=== PATIENT | female | born 1935 | race Caucasian/White ===

== ENCOUNTER → 2016-10-11 | Outpatient (CLI) | payer MEDICARE ==
[~2016-10-11] MED LIST: ALBUTEROL MININEB NEB; AMLODIPINE-BEN1 EAC5 PO; ANTIVERT PO; ATORVASTATIN CA80 MG PO; AZOR 5-20 MG T1 EACH PO; CELEXA20 MG PO; CITALOPRAM HBR10 MG PO; COLACE PO; COUMADIN PO; DESYREL150 M1 PO; FENOFIBRATE54 MG PO; GLUCOPHAGE500 MG PO; GLUCOPHAGE850 MG PO; GLUCOTROL PO; IRON325 MG PO; JANUVIA50 MG PO; LANTUS100 UNITS/ SUBQ; LASIX20 MG PO; LEVAQUIN PO; LEVAQUIN750 M1 PO; LIPITOR80 MG PO; LOPRESSOR PO; LORTAB 5-325 M1 EACH PO; LOTREL 5-20 MG1 CAP PO; METFORMIN HCL500 M1 PO; METFORMIN PO; METOPROLOL TAR25 MG DOB; METOPROLOL TAR25 MG PO; NORCO1 TAB 10/3 PO; OMEPRAZOLE20 M2 PO; PRAVASTATIN SOD20 MG PO; PREDNISONE10 MG PO; PRILOSEC20 M1 PO; PRILOSEC20 MG PO; PROTONIX PO; SENOKOT S1 TA1 PO; SYMBICORT INH; TRICOR PO; ULTRAM PO; WARFARIN SODIUM2 M1 PO; ZOFRAN ODT4 MG PO
--- NOTE | ~2016-10-11 | US77 ---
[facility] A Service of [facility] RADIOLOGY TEXT RESULTS PATIENT: ARLEEN GRANT LOCATION: CNIV : 35 UNIT #: [id number] AGE: [address]: Mayi Mar SEX: F ORDER DR: [id number] [facility] [address] [place], [place] [address] [id number] O MR#: [id number] Acc #: [id number] NAME: ARLEEN GRANT. : 1935 SEX: F STUDY DATE/TIME: 10/11/2016 10:20 UNIT: CNIV ROOM: STUDY DESCRIPTION: US Kidney Bilateral Complete Attending Physician: Mayi Mar A.P.R.N. Referring Physician: Mayi Mar A.P.R.N. Ordering Physician: Mayi Mar A.P.R.N. Primary Care Physician: Isa Moon A.P.R.N. MEDICAL IMAGING REPORT This report is preliminary unless electronic signature is present EXAM Bilateral renal ultrasound 10/11/2016 HISTORY Physician's order states declining kidney function. Patient states flank pain for 1 year (side not designated). GFR 45. Additional stated history of acute renal insufficiency. COMPARISON CT abdomen and pelvis without contrast 10/16/2015. FINDINGS The right kidney measures 11.8 cm and the left kidney measures 11.3 cm in length. A cyst within the left upper renal pole measures 1.8 cm corresponding to previous CT finding. Another cyst in the lateral anterior polar region measures 1.9 cm. No suspicious solid renal mass is identified. No shadowing renal stone or hydronephrosis is evident. There is small quantity right upper quadrant abdominal ascites. Urinary bladder appears unremarkable. IMPRESSION 1. There are 2 simple left renal cysts. 2. No hydronephrosis. 3. Normal appearance of the urinary bladder. 4. Small quantity right upper quadrant ascites. Dictated by... Daphney Peterson M.D. THIS IS AN ELECTRONICALLY VERIFIED REPORT Daphney Peterson M.D. at 10/12/2016 8:46 AM LLH/mjs [facility] A Service of [facility] RADIOLOGY TEXT RESULTS PATIENT: ARLEEN GRANT LOCATION: CNIV : 35 UNIT #: [id number] AGE: [address]: Mayi Mar SEX: F ORDER DR: TD: 10/11/2016 14:14 JOB #: [id number] MEDICAL IMAGING REPORT Page 1 of 1 COPY
--- NOTE | ~2016-10-11 | US10 ---
[id number] [place] [address] [place], [place] [address] [id number] O MR#: [id number] Acc #: [id number] NAME: ARLEEN GRANT : 1935 SEX: F STUDY DATE/TIME: 10/11/2016 10:05 UNIT: CNIV ROOM: STUDY DESCRIPTION: US Aorta Complete Attending Physician: Mayi Mar A.P.R.N. Referring Physician: Mayi Mar A.P.R.N. Ordering Physician: Mayi Mar A.P.R.N. Primary Care Physician: Isa Moon A.P.R.N. MEDICAL IMAGING REPORT This report is preliminary unless electronic signature is present EXAM Abdominal aortic duplex. HISTORY Abdominal aortic aneurysm 331.57. FINDINGS Duplex imaging of the abdominal aorta was performed. The proximal aorta is patent with a maximum diameter of 2.5 cm. There is a small abdominal aortic aneurysm in the midportion measuring 3.7 x 3.6 cm in diameter. Distally, the abdominal aorta measures 2.8 x 3.1 cm. In the midportion, more measurements indicate the aneurysm could maybe as large as 4.04 cm. IMPRESSION Abdominal aortic aneurysm with a maximal diameter of 4 cm in the midportion. Dictated by... Yovany Boyle M.D. THIS IS AN ELECTRONICALLY VERIFIED REPORT Yovany Boyle M.D. at 10/14/2016 10:59 AM Bertha TD: 10/11/2016 15:09 JOB #: [id number] MEDICAL IMAGING REPORT Page 1 of 1 COPY
== END | disposition home or self-care (01) ==
LOC: CGUS 09:35 → CNIV 09:35 → CGUS 10:30
DX: I71.4 Abdominal aortic aneurysm, without rupture (principal); I75.029 Atheroembolism of unspecified lower extremity; N28.1 Cyst of kidney, acquired; R18.8 Other ascites
CPT/HCPCS: 76770

== ENCOUNTER → 2016-10-18 | Outpatient (CLI) | payer MEDICARE ==
--- NOTE | ~2016-10-18 | CT57 ---
[facility] A Service of [facility] RADIOLOGY TEXT RESULTS PATIENT: ARLEEN GRANT LOCATION: [facility] : 35 UNIT #: [id number] AGE: [address]: Isa Moon APRN SEX: F ORDER DR: [id number] [address] [address] [id number] O MR#: [id number] Acc #: [id number] NAME: ARLEEN GRANT. : 1935 SEX: F STUDY DATE/TIME: 10/18/2016 13:33 UNIT: [facility] ROOM: STUDY DESCRIPTION: CT Chest Wo Cont Attending Physician: Isa Moon A.P.R.N. Referring Physician: Isa Moon A.P.R.N. Ordering Physician: Isa Moon A.P.R.N. Primary Care Physician: Isa Moon A.P.R.N. MEDICAL IMAGING REPORT This report is preliminary unless electronic signature is present. EXAM CT of the chest without contrast INDICATIONS Pulmonary nodule. Patient reportedly states that there is a new pulmonary nodule found [address] of the chest was performed without contrast. Coronal and sagittal reformatted images were obtained. This CT exam was performed with one or more of the following radiation dose reduction techniques: automatic exposure control, adjustment of mA and/or kV according to patient size, and iterative reconstruction. COMPARISON 10/06/2015 and 05/18/2015 FINDINGS There is a large calcified granuloma in the base of the right lower lobe. There are scattered calcified granulomas elsewhere in the lungs. There are also some scattered tiny micronodules which are stable. There is no suspicious pulmonary nodule. There is some minimal emphysema. Calcified mediastinal lymph nodes. No suspicious lymphadenopathy. No pleural effusion. Coronary artery calcification. There is a stable tubular density in the right lower lobe which likely reflects some mucus filled dilated bronchioles. Limited imaging in the upper abdomen demonstrates scant perihepatic ascites. Diffuse high attenuation material in the gallbladder may reflect sludge. Partially imaged aortic aneurysm. This was recently evaluated on ultrasound of the aorta. Please refer the ultrasound report for complete details. IMPRESSION STS. [facility] A Service of [facility] RADIOLOGY TEXT RESULTS PATIENT: ARLEEN GRANT LOCATION: [facility] : 35 UNIT #: [id number] AGE: [address]: Isa Moon APRN SEX: F ORDER DR: 1. There are bilateral calcified granulomas including a dominant large calcified granuloma within the right lung base. 2. Scattered tiny micronodules elsewhere are stable. 3. A tubular area of low density in the right lower lobe likely reflects secretions or mucus filled dilated bronchiole. 4. No suspicious pulmonary nodule. Dictated by... Amauri Caceres M.D. THIS IS AN ELECTRONICALLY VERIFIED REPORT Amauri Caceres M.D. at 10/19/2016 10:06 AM ARS/danilo TD: 10/18/2016 20:21 JOB #: [id number] MEDICAL IMAGING REPORT Page 1 of 1
== END | disposition home or self-care (01) ==
LOC: SCT 13:44
DX: R91.8 Other nonspecific abnormal finding of lung field (principal); J84.10 Pulmonary fibrosis, unspecified; J98.4 Other disorders of lung
CPT/HCPCS: 71250

== ENCOUNTER 2016-11-26 10:52 | Inpatient (IN) | payer MEDICARE ==
[~2016-11-26] VITALS: Ht 152.4 cm; Wt 68.0 kg
--- NOTE | ~2016-11-26 | CO ---
Unit #: [id number] #: [id number] Patient: ARLEEN GRANT [id number] [facility]. [place], [place] [address] [id number] I MR#: [id number] NAME: ARLEEN GRANT. ROOM: 559 Age: Sex: F Admission Date: 11/26/2016 : 1935 Attending Physician: Brian Peace M.D. Primary Care Physician: Benson LiPJaysonRPatricia CONSULTATION REPORT DICTATED FOR Wilfrid Silva M.D. PRIMARY CARE PHYSICIAN Isa Moon A.P.R.N. REASON FOR CONSULTATION Ascites, possible cirrhosis, and GI bleed. HISTORY OF PRESENT ILLNESS The patient is a very pleasant 81-year-old female with past medical history significant for diabetes; COPD; hypertension; hyperlipidemia; CVA, on long-term anticoagulation. The patient lives with her daughter, but is quite independent. She was sent from her primary care provider's office for Coumadin toxicity and abdominal distention. The patient reports increasing abdominal swelling over the past couple of months. In addition, she has been noticing intermittently having melanotic stool and scant hematochezia. No nausea, vomiting, anorexia, or recent weight loss. In the emergency room, CT show liver with possible cirrhotic morphology and partially loculated ascites and concerning for peritoneal carcinomatosis. PAST MEDICAL HISTORY Diabetes, hypertension; hyperlipidemia; anxiety; COPD; CVA, on long-term anticoagulation. PAST SURGICAL HISTORY Cataract extraction, appendectomy, fallopian tube removal, bilateral carotid endarterectomy. SOCIAL HISTORY The patient lives with her daughter. She is a reformed smoker. Denies alcohol or any illicit drug use. FAMILY HISTORY Notable for breast cancer. None for colon, pancreatic cancer, or liver disease. ALLERGIES Penicillin and codeine. HOME MEDICATIONS Coumadin, fenofibrate, trazodone, atorvastatin, Protonix, Januvia, Unit #: [id number] #: [id number] Patient: ARLEEN GRANT amlodipine, Lasix, Celexa, Glucophage, Lantus, ferrous sulfate, Glucotrol, and Lopressor. REVIEW OF SYSTEMS Detailed review of system significant for abdominal distention, generalized weakness, melanotic stool, hematochezia, and mild abdominal pain. Negative for fever, chills, or rigors. No chest pain or shortness of breath. The patient does have a nonproductive cough. No anorexia or recent weight loss. The rest of organ systems reviewed and are negative. Dictated by.Jayson. Olivia Murillo APRN PN/modl TD: 11/27/2016 14:32 JOB #: [id number] CONTINUATION PHYSICAL EXAMINATION GENERAL: The patient is awake, alert, appears comfortable in no acute distress. VITAL SIGNS: Stable with temperature 98, blood pressure 118/53, heart rate 72, respirations 18. HEENT: The patient does have mild pallor. No scleral icterus. No lymphadenopathy. No peripheral edema. LUNGS: Decreased breath sounds bilaterally. CARDIOVASCULAR: Regular rate and rhythm with soft systolic murmur. ABDOMEN: Markedly distended. Mild diffuse tenderness with palpation. No guarding. Liver and spleen not palpable due to distention. Bowel sounds normal. DIAGNOSTIC STUDIES LABORATORY RESULTS: Basic metabolic panel notable for creatinine 2.0, BUN 47, potassium 5.4. Initially, albumin was 2.7. LFTs within normal limits. INR 1.9 down from 8.5 on admission. CBC notable for hemoglobin 10.7, down from 11.8 upon admission; WBC 8.6; platelet 432. Urinalysis within normal limits. IMAGING STUDIES: Abdominal CT showed a possible cirrhotic morphology of the liver, partially loculated ascites. There is extensive stranding seen within the mesentery concerning for possible peritoneal carcinomatosis with malignant ascites. Aneurysmal dilation of the infrarenal abdominal aorta measuring 4.2 x 3.6 cm. ASSESSMENT AND PLAN 1. The patient with new onset of ascites concerning for possible cirrhosis versus malignancy. We will schedule for large volume paracentesis and fluid analysis. 2. Anemia possible from chronic gastrointestinal blood loss. An upper gastrointestinal endoscopy is recommended and will be schedule for in a.m. to look for esophageal varices as indirect evidence of cirrhosis and for any potential source of upper gastrointestinal bleed. The patient will eventually need a colonoscopy as he has never had exam before. Exam can be scheduled at a later date when then patient can tolerate prep or as an outpatient. The plan of care discussed in detail with the patient and Unit #: [id number] #: [id number] Patient: RUDY,ARLEEN M daughter at the bedside. The patient has been discussed with Dr. Silva. Further recommendations to follow. Thank you very much for asking us to see this patient. We appreciate the consult. Dictated by.JOY Beach/stephanie TD: 11/27/2016 15:47 JOB #: [id number] CC: Benson LiPJaysonRJaysonNJayson CONSULTATION REPORT Page 1 of 1 X X CONSULTATION REPORT
--- NOTE | ~2016-11-26 | MR3 ---
[facility] A Service of [facility] RADIOLOGY TEXT RESULTS PATIENT: ARLEEN GRANT LOCATION: [facility] 559-01 : 35 UNIT #: [id number] AGE: [address]: Aura Marie MD SEX: F ORDER DR: [id number] [facility] [address] [place], [place] [address] [id number] I MR#: [id number] Acc #: [id number] NAME: ARLEEN GRANT. : 1935 SEX: F STUDY DATE/TIME: 12/01/2016 22:56 UNIT: [facility] ROOM: [facility] STUDY DESCRIPTION: MR Abdomen Wo Contrast Attending Physician: Aura Marie M.D. Ordering Physician: Mickey Padilla M.D. Primary Care Physician: Benson LiPJaysonRPatricia MRI CENTER REPORT This report is preliminary unless electronic signature is present. EXAM MRI abdomen without contrast 12/01/2016 HISTORY Cirrhosis. Ascites. Mid abdominal pain with diarrhea for [address] abdomen and pelvis without contrast 11/26/2016. PROCEDURE Multiplanar, multisequence images performed of the abdomen without contrast, as requested. FINDINGS Moderate abdominal ascites is present. Surface nodular contour of the liver compatible with the patient's stated history of cirrhosis. No focal liver lesions appreciated, although evaluation for liver lesion is limited due to lack of IV contrast. Some layering high-density material within the gallbladder may represent tiny stones or sludge. However, no abnormal gallbladder wall thickening is identified on this examination. No biliary dilation is evident. Pancreas appears mildly atrophic. T2 hyperintense lesions are demonstrated within each kidney which are nonspecific but are favored to represent cysts, 1 of the largest in the left upper renal pole measuring up to 1.6 cm. There is fusiform aneurysmal dilation of the abdominal aorta measuring nearly 3.5 cm on this examination. There is a dissection flap within it which is thought to be chronic, given the presence of calcification along the region of the flap on the 11/26/[address] [facility] A Service of [facility] & [facility] RADIOLOGY TEXT RESULTS PATIENT: ARLEEN GRANT LOCATION: [facility] 559-01 : 35 UNIT #: [id number] AGE: [address]: Aura Marie MD SEX: F ORDER DR: There is abnormal edema or reticulation within the omentum, likely related to patient's aforementioned ascites. Certainly, omental carcinomatosis could have a very similar appearance. No biliary dilation is identified. Pancreatic duct caliber appears within normal limits. IMPRESSION 1. Very mild surface nodular contour of the liver consistent with the patient's stated history of cirrhosis. No focal liver lesions identified but subtle liver lesions could certainly be missed due to the lack of IV contrast. 2. Moderate quantity abdominal ascites. 3. There is thickening of the omentum. This may represent changes related to aforementioned ascites. However, omental carcinomatosis can have a very similar appearance. Correlate with the patient's known history. Correlate with patient's paracentesis cytology. 4. Fusiform infrarenal abdominal aortic aneurysm with suspected chronic-appearing dissection flap within it. 5. Layering material within the gallbladder may represent stones or sludge. No abnormal gallbladder wall thickening and no abnormal biliary dilation. 6. Probable bilateral renal cysts. Dictated by... Daphney Peterson M.D. THIS IS AN ELECTRONICALLY VERIFIED REPORT Daphney Peterson M.D. at 12/02/2016 9:49 PM MICHAELA/gayatri TD: 12/02/2016 06:15 JOB #: [id number] MRI CENTER REPORT Page 1 of 1 COPY
--- NOTE | ~2016-11-26 | CO ---
Unit #: [id number] #: [id number] Patient: ARLEEN GRANT [id number] [place], [place] [address] [id number] I MR#: [id number] NAME: ARLEEN GRANT. ROOM: 559 Age: 81 Sex: F Admission Date: 11/26/2016 : 1935 Attending Physician: Aura Marie M.D. Primary Care Physician: Isa Moon A.P.R.N. Consultation Date: 11/27/2016 CONSULTATION REPORT PRIMARY CARE PHYSICIAN Isa Moon A.P.R.N. REASON FOR CONSULTATION New onset of ascites. HISTORY OF PRESENT ILLNESS The patient is a very pleasant 81-year-old white female who lives at home. The patient is physically quite active, does all the activities of daily living including cleaning and mopping in the house. She does not drive. Her son keeps a close eye on her. The patient has presented with Coumadin toxicity in fact she presents with 4 weeks' history of increasing abdominal distention and new onset of ascites with minimal pedal edema. DIAGNOSTIC STUDIES LABORATORY RESULTS: Shows an albumin of 2.1 and normal LFTs and the patient also has normochromic normocytic anemia with a hemoglobin of 10.0. White count and platelet counts are normal. IMAGING STUDIES: Her CT scan of the abdomen and pelvis is notable for possibly cirrhotic morphology of liver and possibility of the peritoneal carcinomatosis. MANAGEMENT PLAN This includes diagnostic paracentesis. The patient will have large volume paracentesis as well as will send the fluid for cytology, cell count, as well as albumin level. A diagnostic endoscopy is in order. The latter is normal and consider a colonic evaluation. In the meantime, the patient gets 2 g sodium high-protein diet. Detailed discussion was held with the patient's son regarding possibility of liver disease, such as cirrhosis versus malignancy, being the two most likely differential diagnosis and overall he seemed reassured. Thank you very much for asking me to see this pleasant woman. I appreciate the consult. This is an addendum to dictation already done by Olivia Murillo, nurse practitioner. Dictated by... Aviva Millan/stephanie Unit #: [id number] #: [id number] Patient: ARLEEN GRANT TD: 11/28/2016 14:35 JOB #: [id number] CONSULTATION REPORT Page 1 of 1 X Wilfrid Silva MD CONSULTATION REPORT
--- NOTE | ~2016-11-26 | OR ---
Unit #: [id number] #: [id number] Patient: ARLEEN GRANT [id number] [facility]. [place], [place] [address] [id number] I MR#: [id number] NAME: ARLEEN GRANT ROOM: 559 Date of Procedure: 11/28/2016 Admission Date: 11/26/2016 Surgeon: Wilfrid Silva M.D. : 1935 Attending Physician: Brian Peace M.D. Primary Care Physician: Isa Moon A.P.R.N. OPERATIVE REPORT PRIMARY CARE PHYSICIAN Isa Moon A.P.R.N. PREOPERATIVE DIAGNOSES New onset of ascites and anemia. The patient has been admitted with Coumadin toxicity. She has a 4 weeks history of progressively increasing abdominal distention. PROCEDURES PERFORMED Upper gastrointestinal endoscopy. POSTOPERATIVE DIAGNOSES Small hiatus hernia, otherwise normal examination up to third part of the duodenum. RECOMMENDATIONS The patient will undergo large volume paracentesis tomorrow, and the fluid be sent for cytology, albumin, cell count, and culture. She will require a colonoscopy a day later. In the meantime, her CA 19-9, CA-125, and CEA levels are pending. SEDATION USED MAC. DESCRIPTION OF PROCEDURE Following detailed explanation of the potential risks and complications of an upper endoscopy, namely perforation, bleeding, and complications related to sedation, the patient was brought to GI lab and laid in the left lateral decubitus position. Lubricated tip of the Olympus video upper endoscope was passed through bite-block into the proximal esophagus under direct vision. The entire esophageal mucosa was examined and appeared normal. Z-line was nicely demarcated, there being no esophagitis. The patient did have a small hiatus hernia. The scope was then advanced into the gastric cavity, and the latter was insufflated. Mucosa of the fundus, body, and antrum was examined, and appeared unremarkable. Pylorus was intubated with visualization of normal duodenal bulb and second and third part of the duodenum. Upon withdrawal and retroflexion, incisura, cardia, and greater curve examined, and no additional findings noted. The scope was then withdrawn in the distal esophagus. The entire esophageal mucosa was examined all the way up to pharynx. No additional findings noted. The patient tolerated the Unit #: [id number] #: [id number] Patient: ARLEEN GRANT procedure without any postprocedure complications. Dictated by... Aviva Millan/stephanie TD: 11/28/2016 14:33 JOB #: [id number] OPERATIVE REPORT Page 1 of 1 X Wilfrid Silva MD PROCEDURE OPERATIVE NOTE
--- NOTE | ~2016-11-26 | HP ---
Unit #: [id number] #: [id number] Patient: ARLEEN GRANT [id number] [facility]. [place], [place] [address] [id number] I MR#: [id number] NAME: ARLEEN GRANT. ROOM: 559 Age: 81 Sex: F Admission Date: 11/26/2016 : 1935 Attending Physician: Lata Peace M.D. Primary Care Physician: Isa Moon A.P.R.N. HISTORY AND PHYSICAL CHIEF COMPLAINT Abnormal labs. HISTORY OF PRESENT ILLNESS The patient is an 81-year-old female with a history of a carotid endarterectomy, on Coumadin, presented to the emergency room with the abnormal labs. The patient stated the patient was being followed with the nurse practitioner and has been gradually having the distended stomach with the weakness. The patient was scheduled to get the CT scan today, however, the patient was too weak to go for the blood checkup for the INR. The patient's INR was found to be 8.5. The patient also complains of passing the black stools and was attributed to the iron tablet that she is taking. The patient had a guaiac stool test done in the emergency room and that is trace positive for the bleeding. The patient had a CT of the abdomen that shows a loculated ascites and concerning for the peritoneal carcinomatosis and the patient is being admitted for the above reasons. Denies any fevers. Denies any chill. Denies any nausea and vomiting. PAST MEDICAL HISTORY History of hypertension, diabetes, hyperlipidemia and anxiety, subacute CVA. PAST SURGICAL HISTORY Cataract extraction, appendectomy, fallopian tube removal, history of a bilateral carotid endarterectomy. SOCIAL HISTORY Negative for tobacco, alcohol or any illicit drug abuse. FAMILY HISTORY Reviewed and none. ALLERGIES Penicillin and codeine. REVIEW OF SYMPTOMS Positive for the generalized weakness. Positive for the blood in the stool and negative for nausea and vomiting. Negative for dizziness. Negative for chest pain. Other systems reviewed and none. HOME MEDICATION Patient is on Glucophage, Lantus, iron, Glucotrol, Lopressor, Protonix, Januvia, amlodipine, benazepril, Lasix, Celexa, Coumadin, fenofibrate, Desyrel and Lipitor. Unit #: [id number] #: [id number] Patient: ARLEEN GRANT PHYSICAL EXAMINATION GENERAL APPEARANCE: On examination the patient is lying on a bed not in acute distress. VITAL SIGNS: Temperature 98.7, pulse 77, respiratory rate 16, blood pressure 153/71, sating 91% on 2 L. HEENT: Head atraumatic and normocephalic. Pupils equal, round and reacting to light and accommodation. Extraocular movements are intact. NECK: Supple. LUNGS: Decreased air entry at the bases. ABDOMEN: Soft, positive bowel sounds, distended and generalized tenderness. EXTREMITIES: No cyanosis. No clubbing. NEUROLOGIC: Alert, awake, oriented. No gross focal motor deficit. DIAGNOSTIC STUDIES LABORATORY DATA: WBCs 6.7, hemoglobin 11.8, hematocrit 32.4, platelets 413 and UA shows negative bacteria, INR is 8.5, sodium 137, potassium 5.4, chloride 103, bicarb 28, glucose 262, BUN 55, creatinine 2.4, AST 30, ALT 15, albumin 2.7, lipase 55. IMAGING: CT of the abdomen shows cirrhosis with loculated ascites and concerning for the peritoneal carcinomatosis. ASSESSMENT 1. Cirrhosis and ascites. 2. Coumadin toxicity. 3. Gastrointestinal bleed, likely upper gastrointestinal. 4. Acute kidney injury. PLAN Plan to admit the patient to the inpatient with the telemetry. Patient will receive the one pack of FFP and will have a GI evaluation for cirrhosis, ascites and the GI bleed and patient will have the IR abdominal paracentesis to rule out the malignancy and hold Coumadin. Patient has received the vitamin K5 mg p.o. x1 in the emergency room and repeat the INR in the morning and continue with the sliding scale and further recommendations will follow. Dictated by Aviva Grossman TD: 11/26/2016 20:09 JOB #: [id number] Unit #: [id number] #: [id number] Patient: ARLEEN GRANT HISTORY AND PHYSICAL Page 1 of 1 X LATA PEACE MD X HISTORY AND PHYSICAL
--- NOTE | ~2016-11-26 | CO ---
Unit #: [id number] #: [id number] Patient: ARLEEN GRANT [id number] [address] [place], [place] [address] [id number] I MR#: [id number] NAME: ARLEEN GRANT. ROOM: 559 Age: 81 Sex: F Admission Date: 11/26/2016 : 1935 Attending Physician: Aura Marie M.D. Primary Care Physician: Isa Moon A.P.R.N. Consultation Date: 12/01/2016 CONSULTATION REPORT REASON FOR EVALUATION Malignant ascites and elevated CA19-9, please evaluate. HISTORY OF PRESENT ILLNESS An 81-year-old lady with a history of prolonged INR while on Coumadin comes in due to abdominal distention and weakness, was found to have ascites which was tapped and it showed atypical cells highly suggestive of malignancy. CA19-9 was in the 21,816. Upper and lower endoscopy negative but looking back, CT scan of abdomen from 2015 showed a normal gallbladder and 2017 shows a lot of sludge in it, most probably showing signs of malignancy there. PAST MEDICAL HISTORY Her past history is mainly remarkable for: 1. Hypertension. 2. Hyperlipidemia. 3. CVA. 4. Anxiety disorder. FAMILY HISTORY Negative for cluster of cancers. SOCIAL HISTORY Nonsmoker. No alcohol usage. Retired. Has a daughter living with her and has other three children. ALLERGIES Penicillin and codeine. MEDICATIONS Chronic medications are multiple: 1. Celexa. 2. Glucophage. 3. Glucotrol. 4. Iron. 5. Lantus. 6. Lopressor. 7. Protonix. 8. Januvia. 9. Celexa. 10. Warfarin. 11. Lipitor. 12. Desyrel. 13. Fenofibrate. Unit #: [id number] #: [id number] Patient: ARLEEN GRANT Please see the chart for dosages. REVIEW OF SYSTEMS Today's review of systems: She states that she knew there was something drastically wrong. She started having abdominal discomfort, distention, and generalized weakness. She used to take care of herself and very active previously. Otherwise, six or eight systems are within normal limits. PHYSICAL EXAMINATION GENERAL: Very wide awake, alert, very pleasant, oriented, and has a good memory lady. Daughter is in the room with her. Pale. No palpable nodes. LUNGS: Clear. CARDIOVASCULAR: Distant S1, S2. ABDOMEN: Distended. Possible ascites. CENTRAL NERVOUS SYSTEM: Grossly intact. PELVIC: Not performed. BREAST: Not performed. DIAGNOSTIC STUDIES LABORATORY: CBC: Hemoglobin 10.7, hematocrit 33.4, white count 7700, platelets 399,000. Sodium 139, potassium 5.3, chloride 104, CO2 of 32, glucose 92, BUN 32, creatinine 1.2. CA19-9 at 21,816. CA125 of 494. 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 PLAN I walked in the room and we talked about this between the patient and the daughter. She is very reluctant about any chemotherapy but desires to know further delineation of where this cancer is coming from before deciding on supportive care. I have nothing against that. Will proceed with MRI of the abdomen and if that is not helpful, will even do a PET scan to delineate where this tumor is coming from and then discuss supportive care as the patient overall does not want any aggressive measures. Dictated by... Aviva Arvizu/scott TD: 12/01/2016 17:19 JOB #: [id number] Unit #: [id number] #: [id number] Patient: ARLENE GRANT CONSULTATION REPORT Page 1 of 1 X Mickey Padilla MD X CONSULTATION REPORT
--- NOTE | ~2016-11-26 | CT4 ---
[facility] A Service of [facility] & [facility] RADIOLOGY TEXT RESULTS PATIENT: ARLEEN GRANT LOCATION: [facility] 559-01 : 35 UNIT #: [id number] AGE: [address]: Aura Marie MD SEX: F ORDER DR: [id number] [facility] [address] [place], [place] [address] [id number] I MR#: [id number] Acc #: [id number] NAME: ARLEEN GRANT. : 1935 SEX: F STUDY DATE/TIME: 11/26/2016 13:21 UNIT: [facility] ROOM: [facility] STUDY DESCRIPTION: CT Abd and Pelv Wo Cont Attending Physician: Brian Peace M.D. Ordering Physician: Lakhwinder Chao D.O. Primary Care Physician: Isa Moon A.P.R.N. MEDICAL IMAGING REPORT This report is preliminary unless electronic signature is present EXAM CT abdomen and pelvis without contrast INDICATION Abdominal pain and distension for 2 weeks. The patient has a Coumadin level of over 8. TECHNIQUE Axial CT images were obtained from the dome of the diaphragm through symphysis pubis following administration of oral contrast only. FINDINGS Images through the lung bases do not demonstrate any acute abnormalities. There is a small hiatal hernia. I do think the patient's liver is somewhat cirrhotic in morphology. Certainly the caudate lobe appears enlarged. There is a somewhat nodular appearance to the contour. Correlation with liver function test is suggested, especially as the patient has ascites. The ascites does appear partially loculated, particularly tracking along the anterior aspect of the abdomen and left pericolic gutter. There is extensive stranding seen within the mesentery. This may simply reflect mesenteric edema, but the possibility of peritoneal carcinomatosis cannot be excluded. The patient's stomach appears unremarkable. There is no evidence of mechanical bowel obstruction, there is high-density material seen within the gallbladder which may reflect stones or sludge. The spleen actually measures within normal size limits. Adrenal glands and pancreas appear unremarkable. The right kidney is unremarkable given unenhanced technique. There is a cyst seen on the left kidney. This patient has stable aneurysmal dilatation of the infrarenal abdominal aorta measuring up to 4.2 x 3.6 cm which is unchanged when compared to last year's examination. There is calcified STS. [facility] A Service of [facility] & [facility] RADIOLOGY TEXT RESULTS PATIENT: ARLEEN GRANT LOCATION: [place] [address] : 35 UNIT #: [id number] AGE: [address]: Aura Marie MD SEX: F ORDER DR: intimal flap seen within the suprarenal aorta and certainly there is extensive atherosclerotic involvement of the aorta. Uterus appears unremarkable. There is some additional free fluid seen within the pelvis. Urinary bladder appears within normal limits. Review of bony windows does not demonstrate any aggressive osseous abnormalities. IMPRESSION 1. I do question if patient has a cirrhotic morphology to the liver. Correlation with liver function tests is recommended especially given the presence of ascites which is new when compared to the prior examination. Of note, there is no splenomegaly and no definite large esophageal varices are seen. 2. The ascites does have a somewhat loculated appearance, particularly within the anterior abdomen and tracking along the left pericolic gutter, there is extensive stranding seen within the mesentery. The possibility that this represents peritoneal carcinomatosis with malignant ascites cannot be excluded. No obvious masses are seen within the solid organs. 3. High-density material within the gallbladder may reflect stones or sludge. 4. Aneurysmal dilatation of the infrarenal abdominal aorta measuring 4.2 x 3.6 cm stable when compared to the last year's study. Dictated by... Aditi Mcgregor M.D. THIS IS AN ELECTRONICALLY VERIFIED REPORT Aditi Mcgregor M.D. at 11/29/2016 5:07 PM AFF/ea TD: 11/26/2016 19:23 JOB #: [id number] MEDICAL IMAGING REPORT Page 1 of 1 COPY
--- NOTE | ~2016-11-26 | XA170 ---
[facility] A Service of [facility] & [facility] RADIOLOGY TEXT RESULTS PATIENT: ALREEN GRANT LOCATION: [facility] 559-01 : 35 UNIT #: [id number] AGE: [address]: Aura Marie MD SEX: F ORDER DR: [id number] [facility] [address] [place], [place] [address] [id number] I MR#: [id number] Acc #: [id number] NAME: ARLEEN GRANT. : 1935 SEX: F STUDY DATE/TIME: 11/29/2016 10:00 UNIT: [facility] ROOM: [facility] STUDY DESCRIPTION: XA Paracentesis W Image Attending Physician: Aura Marie M.D. Ordering Physician: Wilfrid Silva M.D. Primary Care Physician: Benson LiPJaysonRPatricia MEDICAL IMAGING REPORT This report is preliminary unless electronic signature is present EXAM Ultrasound-guided paracentesis. INDICATIONS Ascites identified on a CT scan performed November 26, 2016. PROCEDURE The risks, benefits, and alternatives to the procedure were explained to the patient, and signed informed consent was obtained. The patient was placed supine on the stretcher. Preliminary ultrasound of the abdomen was performed. This demonstrated a moderate volume of ascites. The overlying skin was marked, the patient was prepped and draped in the usual sterile fashion. A time-out was performed, as per protocol. Skin and subcutaneous tissues were anesthetized with buffered lidocaine. A Yueh catheter was advanced into the fluid with aspiration of serous material. The catheter was hooked to suction tubing, and there was evacuation of a total of 3.8 L of serous material. The catheter was then removed, and manual pressure was applied until hemostasis was obtained. IMPRESSION Technically successful shunt-guided paracentesis with evacuation of 3.8 L of serous material. Ultrasound was used during the procedure, and permanent images were saved. Dictated by... Aditi Mcgregor M.D. THIS IS AN ELECTRONICALLY VERIFIED REPORT Aditi Mcgregor M.D. at 12/01/2016 4:53 PM AFF/js [facility]. [facility] A Service of [facility] & [facility] RADIOLOGY TEXT RESULTS PATIENT: ARLEEN GRANT LOCATION: [facility] 559-01 : 35 UNIT #: [id number] AGE: [address]: Aura Marie MD SEX: F ORDER DR: TD: 11/30/2016 13:09 JOB #: [id number] MEDICAL IMAGING REPORT Page 1 of 1 COPY
--- NOTE | ~2016-11-26 | DS ---
Unit #: [id number] #: [id number] Patient: ARLEEN GRANT [id number] [address] [address] [id number] I MR#: [id number] NAME: ARLEEN GRANT. ROOM: 559 Age: 81 Sex: F Admission Date: 11/26/2016 : 1935 Discharge Date: Attending Physician: Aura Marie M.D. Primary Care Physician: Isa Moon A.P.R.N. DISCHARGE SUMMARY DISCHARGE DIAGNOSES 1. 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 2. Gastrointestinal bleed, status post esophagogastroduodenoscopy, which shows small hiatal hernia and colonoscopy shows a single sessile polyp. The rest of the exam is normal. 3. Likely cirrhosis, changes found in MRI of the abdomen. 4. Hypertension. 5. Diabetes mellitus type 2 uncontrolled. 6. Hyperlipidemia. 7. Anxiety. 8. History of subacute cerebrovascular accident. 9. Coumadin toxicity. 10. Acute kidney injury. 11. Severe protein malnutrition. 12. Mild hypocalcemia. CONSULTANTS Dr. Padilla and Dr. Silva. PROCEDURES Patient had EGD and colonoscopy, which showed small hiatal hernia and sessile polyps single at the proximal descending colon. DIAGNOSTIC STUDIES LABORATORY DATA: Glucose 118, sodium 138, potassium 5.1, creatinine 1.4, AST 28, ALT 11, alk phos 41, total bilirubin 0.1, albumin 2.0. WBC 7.4, hemoglobin 10.5, placements 395. Cytology from the ascites shows atypical cells suspicious for malignancy. CA 125 level is 494. CA 19-9 level is 21,816. MRI: MRI of the abdomen shows mild surface nodular contour of the liver consistent with patient history of cirrhosis. No focal liver lesions. Moderate quantity abdominal ascites present. Thickening of omentum present. This reflection is related to aforementioned ascites, cannot rule out omental carcinomatosis. IMAGING STUDIES: CAT scan of the abdomen and pelvis shows cirrhotic morphology, ascites, high density material near the gallbladder representing stones or sludge. ALLERGIES Penicillin and codeine. Unit #: [id number] #: [id number] Patient: ARLEEN GRANT DISCHARGE MEDICATIONS 1. Coumadin 2 mg p.o. daily to resume if okay with Dr. Padilla. Patient will have outpatient PET scan, not sure if she will have biopsy for her malignancy. 2. Celexa 20 mg p.o. daily. 3. Trazodone 150 mg at bedtime. 4. Januvia 50 daily. 5. Atorvastatin 80 daily. 6. Lopressor 12.5 p.o. b.i.d. 7. Fenofibrate 54 mg p.o. daily. 8. Lantus 14 units subcu b.i.d. 9. Iron 325 p.o. daily. 10. Protonix 40 daily. 11. Lortab 5 mg q.4 p.r.n. moderate pain. HOSPITALIZATION COURSE 81-year-old admitted because of abdominal pain and abnormal labs. 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 MRI is abnormal with thickening omentum and nodular changes of liver. Ascites tap with paracentesis done, which shows abnormal cells, also with elevated CA 125 and CA 19-9 level, most likely carcinoma. Patient wants an outpatient PET scan but she is not sure if she surgery, chemo, or radiation. The patient is seen by Dr. Silva and Dr. Padilla. They will follow the patient as an outpatient. It talked in detail with her daughter, Sussy, and she agrees to be discharged home and she will take the patient to the appointments and for PET scan as an outpatient. Acute kidney injury, most likely prerenal. Her lisinopril and Lasix has been discontinued. IV fluids given. Creatinine is stable. History of subacute CVA on Coumadin. Hold that for now until okay by Dr. Padilla because she might need a biopsy to diagnose her carcinoma, if patient wants to pursue that route. Diabetes mellitus type 2 with low blood sugars. Continue current medications. Hold her metformin, but continue her insulin because she is receiving that during the hospitalization course. Currently tolerating diet okay. Hypertension, stable. Discussed with the daughter, Sussy. GI bleed. Patient had EGD and colonoscopy, which she did not show obvious bleeding. Currently hemoglobin is stable. Cirrhotic morphology of liver with ascites. Patient will follow with Dr. Silva. Patient had paracentesis. Discharged home with home health. Follow with Dr. Silva in two weeks time. Follow with Dr. Padilla in one week time for outpatient PET scan and swallow post carcinoma. Discharge time taken is 32 minutes. Unit #: [id number] #: [id number] Patient: ARLEEN GRANT Dictated by... Aviva Garcia/clarence TD: 12/02/2016 12:04 JOB #: [id number] DISCHARGE SUMMARY Page 1 of 1 X Aura Marie MD X DISCHARGE SUMMARY
--- NOTE | ~2016-11-26 | OR ---
Unit #: [id number] #: [id number] Patient: ARLEEN GRANT [id number] [place], [place] [address] [id number] I MR#: [id number] NAME: ARLEEN GRANT. ROOM: 559 Date of Procedure: 12/01/2016 Admission Date: 11/26/2016 Surgeon: Wilfrid Silva M.D. : 1935 Attending Physician: Aura Marie M.D. Primary Care Physician: Isa Moon A.P.R.N. OPERATIVE REPORT PRIMARY CARE PHYSICIAN Isa Moon A.P.R.N. PREOPERATIVE DIAGNOSES The patient has presented with a history of ascites with low albumin gradient consistent with malignant ascites. In addition, her CA 19-9 is more than 21,000 consistent with malignant ascites. She also has an iron deficiency anemia. The purpose of colonoscopy is to look for any malignancy. PROCEDURES PERFORMED Colonoscopy and polypectomy. POSTOPERATIVE DIAGNOSES 1. Single sessile polyp in the mid proximal descending colon. This was removed using snare polypectomy. The polyp was about 5 to 6 mm in size and was lost in suction. 2. Rest of the examination up to cecum and terminal ileum was normal. The quality of the prep was excellent. No angiodysplasias were seen and the patient did not have any cancer. RECOMMENDATIONS The patient has a malignant ascites of unknown primary. It is rather difficult to decide as to how aggressive one needs to be at her age. I have left a telephonic message with her daughter as well as I tried to reach her son and have so far unable to do that. In the meantime, we will obtain Oncology consultation. SEDATION USED MAC. DESCRIPTION OF PROCEDURE Following detailed explanation of potential risks and complications of a colonoscopy, namely perforation, bleeding, and complications related to sedation, the patient was brought to GI lab and laid in the left lateral decubitus position. A digital rectal examination was performed, which was normal. Lubricated tip of the Olympus video colonoscope was inserted through the anus and advanced under direct vision. The scope was advanced past rectosigmoid into descending colon. No diverticula were noted in this area. The scope tip was then navigated all the way up to cecum with visualization of the ileocecal valve and the appendiceal orifice. Preparation was excellent with good visualization and photodocumentation Unit #: [id number] #: [id number] Patient: ARLEEN GRANT was obtained. Last several inches of the terminal ileum were also visualized after intubation of the ileocecal valve and appeared normal. Successive segments of the colonic mucosa were examined upon withdrawal. A single sessile polyp was noted in the proximal descending colon. This was about 6 mm in size. It was removed using snare polypectomy. The polyp could not be retrieved and was lost in suction. No additional polyps were noted. The patient did not have any diverticulosis nor any hemorrhoids. The scope was then withdrawn and the patient returned to the recovery area. She tolerated the procedure without any postprocedure complications. Dictated by... Aviva Millan/stephanie TD: 12/01/2016 16:24 JOB #: [id number] OPERATIVE REPORT Page 1 of 1 X Wilfrid Silva MD X PROCEDURE OPERATIVE NOTE
[~2016-11-26 10:52] MED LIST changes: -ATORVASTATIN CA80 MG PO; -COUMADIN PO; -GLUCOTROL PO; -IRON325 MG PO; -JANUVIA50 MG PO; -LANTUS100 UNITS/ SUBQ; -LOPRESSOR PO; -LORTAB 5-325 M1 EACH PO; -METFORMIN PO; -PROTONIX PO
[2016-11-26 11:33] LABS: URINE SOURCE CLEAN CATCH
[2016-11-26 11:38] LABS: BASOPHIL% 0.4 % (0-2.5); EOSINOPHIL# 0.1 X10e3 (0-0.7); EOSINOPHIL% 0.8 % (0.0-7.0); HEMATOCRIT 36.4 % (35.0-45.0); HEMOGLOBIN 11.8 gm/dL (12.0-16.0); LYMPHOCYTE# 0.5 X10e3 (1.0-3.5); MEAN CORPUSCULAR HEMOGLOBIN 28.4 PG (28-34); MEAN CORPUSCULAR HGB CONC 32.3 g/dL (30-36); MEAN PLATELET VOLUME 9.4 FL (6.5-11.5); MONOCYTE# 0.4 X10e3 (0-1.0); MONOCYTE% 6.6 % (3.0-12.0); NEUTROPHIL# 5.8 X10e3 (1.5-7.1); NEUTROPHIL% 85.2 % (40-75); PLATELET COUNT 413 X10e3 (140-420); RED BLOOD COUNT 4.14 X10e (3.90-5.30); RED CELL DISTRIBUTION WIDTH 14.4 % (11.0-15.5); WHITE BLOOD COUNT 6.7 X10e3 (4.0-10.5)
[2016-11-26 11:39] LABS: DIFF IND NO
[2016-11-26 11:40] LABS: URINE APPEARANCE CLEAR; URINE BILIRUBIN NEG (NEG); URINE BLOOD NEG (NEG); URINE COLOR YELLOW; URINE GLUCOSE NEG (NEG); URINE KETONE TRACE (NEG); URINE LEUKOCYTE ESTERASE NEG (NEG); URINE NITRATE NEG (NEG); URINE PROTEIN NEG (NEG)
[2016-11-26 11:46] LABS: CULTURE INDICATED? NO
[2016-11-26 12:00] LABS: PARTIAL THROMBOPLASTIN TIME 63.2 SECONDS (23.5-31.3); PROTHROMBIN TIME (PATIENT) 92.4 SECONDS (10.0-11.7)
[2016-11-26 12:08] LABS: INR 8.5
[2016-11-26] MEDS ORDERED: LANTUS100 UNITS/ SUBQ (12:16)
[2016-11-26] MEDS ORDERED: JANUVIA50 MG PO (12:16)
[2016-11-26] MEDS ORDERED: LOPRESSOR PO (12:16)
[2016-11-26] MEDS ORDERED: METFORMIN PO (12:16)
[2016-11-26] MEDS ORDERED: GLUCOTROL PO (12:16)
[2016-11-26] MEDS ORDERED: PROTONIX PO (12:16)
[2016-11-26] MEDS ORDERED: IRON325 MG PO (12:16)
[2016-11-26] MEDS ORDERED: AMLODIPINE-BEN1 EAC5 PO (12:17)
[2016-11-26] MEDS ORDERED: DESYREL150 M1 PO (12:17)
[2016-11-26] MEDS ORDERED: FENOFIBRATE54 MG PO (12:17)
[2016-11-26] MEDS ORDERED: LASIX20 MG PO (12:17)
[2016-11-26] MEDS ORDERED: COUMADIN PO (12:17)
[2016-11-26] MEDS ORDERED: CELEXA20 MG PO (12:17)
[2016-11-26 12:18] LABS: ALBUMIN SERUM 2.7 g/dL (3.5-5.0); BILIRUBIN, DIRECT 0.2 mg/dL (0.0-0.2); BILIRUBIN,INDIRECT 0.4 mg/dL (0.0-0.9); BILIRUBIN,TOTAL 0.6 mg/dL (0.2-2.0); CALCIUM SERUM 8.6 mg/dL (8.4-10.2); CREATININE SERUM 2.5 mg/dL (0.6-1.4); GLOM FILT RATE Estimated 17.4 mL/min (>60); POTASSIUM 5.1 mmol/L (3.5-5.1); PROTEIN TOTAL SERUM 7.1 g/dL (6.0-8.3)
[2016-11-26] MEDS ORDERED: ATORVASTATIN CA80 MG PO (12:18)
[2016-11-27 07:11] LABS: BASOPHIL# 0.1 X10e3 (0-0.3); EOSINOPHIL% 0.6 % (0.0-7.0); HEMATOCRIT 33.2 % (35.0-45.0); HEMOGLOBIN 10.7 gm/dL (12.0-16.0); LYMPHOCYTE# 1.3 X10e3 (1.0-3.5); MEAN CELL VOLUME 87.2 FL (83-96); MEAN CORPUSCULAR HEMOGLOBIN 28.1 PG (28-34); MEAN CORPUSCULAR HGB CONC 32.2 g/dL (30-36); MONOCYTE# 0.7 X10e3 (0-1.0); MONOCYTE% 7.5 % (3.0-12.0); NEUTROPHIL# 6.6 X10e3 (1.5-7.1); NEUTROPHIL% 75.9 % (40-75); PLATELET COUNT 432 X10e3 (140-420); RED BLOOD COUNT 3.81 X10e (3.90-5.30); RED CELL DISTRIBUTION WIDTH 14.4 % (11.0-15.5); WHITE BLOOD COUNT 8.6 X10e3 (4.0-10.5)
[2016-11-27 07:19] LABS: DIFF IND NO
[2016-11-27 07:24] LABS: INR 1.9
[2016-11-27 07:39] LABS: PROTHROMBIN TIME (PATIENT) 20.3 SECONDS (10.0-11.7)
[2016-11-27 07:55] LABS: BUN/CREATININE RATIO 23.5; CALCIUM SERUM 8.6 mg/dL (8.4-10.2); GLOM FILT RATE Estimated 22.8 mL/min (>60); POTASSIUM 5.4 mmol/L (3.5-5.1)
[2016-11-28 05:31] LABS: HEMATOCRIT 32.9 % (35.0-45.0); HEMOGLOBIN 10.8 gm/dL (12.0-16.0); MEAN CELL VOLUME 86.1 FL (83-96); MEAN CORPUSCULAR HEMOGLOBIN 28.3 PG (28-34); MEAN CORPUSCULAR HGB CONC 32.8 g/dL (30-36); MEAN PLATELET VOLUME 9.3 FL (6.5-11.5); RED BLOOD COUNT 3.82 X10e (3.90-5.30); RED CELL DISTRIBUTION WIDTH 14.2 % (11.0-15.5); WHITE BLOOD COUNT 7.5 X10e3 (4.0-10.5)
[2016-11-28 05:34] LABS: INR 1.4; PROTHROMBIN TIME (PATIENT) 15.4 SECONDS (10.0-11.7)
[2016-11-28 06:33] LABS: ALBUMIN SERUM 2.1 g/dL (3.5-5.0); BILIRUBIN,TOTAL 0.7 mg/dL (0.2-2.0); BUN/CREATININE RATIO 25.29; CALCIUM SERUM 8.4 mg/dL (8.4-10.2); CREATININE SERUM 1.7 mg/dL (0.6-1.4); GLOM FILT RATE Estimated 27.8 mL/min (>60); PROTEIN TOTAL SERUM 5.6 g/dL (6.0-8.3)
[2016-11-28 06:34] LABS: POTASSIUM 5.7 mmol/L (3.5-5.1)
[2016-11-29 05:15] LABS: HEMATOCRIT 32.6 % (35.0-45.0); HEMOGLOBIN 10.7 gm/dL (12.0-16.0); MEAN CORPUSCULAR HEMOGLOBIN 28.2 PG (28-34); MEAN CORPUSCULAR HGB CONC 32.8 g/dL (30-36); MEAN PLATELET VOLUME 9.1 FL (6.5-11.5); RED BLOOD COUNT 3.79 X10e (3.90-5.30); RED CELL DISTRIBUTION WIDTH 14.4 % (11.0-15.5); WHITE BLOOD COUNT 7.6 X10e3 (4.0-10.5)
[2016-11-29 05:28] LABS: INR 1.4; PROTHROMBIN TIME (PATIENT) 14.7 SECONDS (10.0-11.7)
[2016-11-29 06:21] LABS: ALBUMIN SERUM 2.2 g/dL (3.5-5.0); BILIRUBIN,TOTAL 0.7 mg/dL (0.2-2.0); BUN/CREATININE RATIO 26.25; CALCIUM SERUM 8.4 mg/dL (8.4-10.2); CREATININE SERUM 1.6 mg/dL (0.6-1.4); GLOM FILT RATE Estimated 29.9 mL/min (>60); POTASSIUM 5.2 mmol/L (3.5-5.1); PROTEIN TOTAL SERUM 6.2 g/dL (6.0-8.3)
[2016-11-29 10:53] LABS: BODY FLUID APPEARANCE CLEAR; BODY FLUID SOURCE ASCITES
[2016-11-29 10:54] LABS: BF TOTAL NUCLEATED CELL COUNT 2014 CMM (0-100); BODY FLUID RBC <10000 CMM
[2016-11-30 05:27] LABS: HEMATOCRIT 32.4 % (35.0-45.0); HEMOGLOBIN 10.4 gm/dL (12.0-16.0); MEAN CELL VOLUME 87.1 FL (83-96); MEAN CORPUSCULAR HEMOGLOBIN 27.9 PG (28-34); MEAN PLATELET VOLUME 9.2 FL (6.5-11.5); RED BLOOD COUNT 3.72 X10e (3.90-5.30); RED CELL DISTRIBUTION WIDTH 14.3 % (11.0-15.5); WHITE BLOOD COUNT 8.5 X10e3 (4.0-10.5)
[2016-11-30 06:06] LABS: BUN/CREATININE RATIO 25.71; CREATININE SERUM 1.4 mg/dL (0.6-1.4); GLOM FILT RATE Estimated 35.1 mL/min (>60); POTASSIUM 4.9 mmol/L (3.5-5.1)
[2016-12-01 05:11] LABS: CA 19-9 21816 U/mL (<34); CA125 494 U/mL (<35)
[2016-12-01 06:33] LABS: HEMATOCRIT 33.4 % (35.0-45.0); HEMOGLOBIN 10.7 gm/dL (12.0-16.0); MEAN CELL VOLUME 86.9 FL (83-96); MEAN CORPUSCULAR HEMOGLOBIN 27.8 PG (28-34); RED BLOOD COUNT 3.85 X10e (3.90-5.30); RED CELL DISTRIBUTION WIDTH 14.1 % (11.0-15.5); WHITE BLOOD COUNT 7.7 X10e3 (4.0-10.5)
[2016-12-01 06:47] LABS: INR 1.4; PROTHROMBIN TIME (PATIENT) 15.1 SECONDS (10.0-11.7)
[2016-12-01 07:25] LABS: ALBUMIN SERUM 1.9 g/dL (3.5-5.0); BILIRUBIN,TOTAL 0.5 mg/dL (0.2-2.0); BUN/CREATININE RATIO 26.66; CREATININE SERUM 1.2 mg/dL (0.6-1.4); GLOM FILT RATE Estimated 42.4 mL/min (>60); MAGNESIUM 2.1 mg/dL (1.6-3.0); POTASSIUM 5.3 mmol/L (3.5-5.1); PROTEIN TOTAL SERUM 5.6 g/dL (6.0-8.3)
[2016-12-02 05:39] LABS: HEMATOCRIT 32.9 % (35.0-45.0); HEMOGLOBIN 10.5 gm/dL (12.0-16.0); MEAN CELL VOLUME 87.3 FL (83-96); MEAN CORPUSCULAR HEMOGLOBIN 27.8 PG (28-34); MEAN CORPUSCULAR HGB CONC 31.8 g/dL (30-36); MEAN PLATELET VOLUME 9.9 FL (6.5-11.5); RED BLOOD COUNT 3.77 X10e (3.90-5.30); RED CELL DISTRIBUTION WIDTH 13.9 % (11.0-15.5); WHITE BLOOD COUNT 7.4 X10e3 (4.0-10.5)
[2016-12-02 06:26] LABS: BILIRUBIN,TOTAL 0.1 mg/dL (0.2-2.0); BUN/CREATININE RATIO 22.14; CALCIUM SERUM 8.2 mg/dL (8.4-10.2); CREATININE SERUM 1.4 mg/dL (0.6-1.4); GLOM FILT RATE Estimated 35.1 mL/min (>60); POTASSIUM 5.1 mmol/L (3.5-5.1); PROTEIN TOTAL SERUM 5.6 g/dL (6.0-8.3)
[2016-12-02] MEDS ORDERED: LORTAB 5-325 M1 EACH PO (11:57)
== END 2016-12-02 15:59 | disposition home health service (06) | DRG 377 ==
LOC: CED 10:52 → C5B 16:34 → CEDOF 16:34 → CED 17:17 → CEDOF 17:17 → C5B 19:04 → CEDOF 19:04 → C5B 19:04
PROVIDERS: Emergency Medicine; Internal Medicine; Internal Medicine Gastroenterology; Nurse Practitioner
PROC: 30233L1 Transfusion of Nonautologous Fresh Plasma into Peripheral Vein, Percutaneous Approach (ICD-10-PCS; 2016-11-26)
PROC: 0DJ08ZZ Inspection of Upper Intestinal Tract, Via Natural or Artificial Opening Endoscopic (ICD-10-PCS; principal; 2016-11-28 11:13)
PROC: 0W9G3ZZ Drainage of Peritoneal Cavity, Percutaneous Approach (ICD-10-PCS; 2016-11-29)
PROC: 0DBM8ZX Excision of Descending Colon, Via Natural or Artificial Opening Endoscopic, Diagnostic (ICD-10-PCS; 2016-12-01)
DX: K92.2 Gastrointestinal hemorrhage, unspecified (principal); J96.01 Acute respiratory failure with hypoxia; E43 Unspecified severe protein-calorie malnutrition; N17.9 Acute kidney failure, unspecified; R18.8 Other ascites; E11.649 Type 2 diabetes mellitus with hypoglycemia without coma; K74.60 Unspecified cirrhosis of liver; E83.51 Hypocalcemia; J44.9 Chronic obstructive pulmonary disease, unspecified; I10 Essential (primary) hypertension; Z79.4 Long term (current) use of insulin; E78.5 Hyperlipidemia, unspecified; F41.9 Anxiety disorder, unspecified; Z68.28 Body mass index [BMI] 28.0-28.9, adult; T45.515A Adverse effect of anticoagulants, initial encounter; Y92.9 Unspecified place or not applicable; Z98.49 Cataract extraction status, unspecified eye; K63.5 Polyp of colon; Z86.73 Personal history of transient ischemic attack (TIA), and cerebral infarction without residual deficits; Z88.0 Allergy status to penicillin; Z88.5 Allergy status to narcotic agent
CPT/HCPCS: 36415; 74176; 74181; 80048; 80053; 80076; 81003; 82042; 82378; 82947; 83690; 83735; 84132; 85025; 85027; 85610; 85730; 86301; 86304; 86850; 86900; 86901; 87070; 87205; 88108; 88305; 89051; 94760; 99285; J1815; J2060; J2270; J3430; P9059

== ENCOUNTER → 2016-12-08 | Outpatient (CLI) | payer MEDICARE ==
[~2016-12-08] MED LIST changes: +ATORVASTATIN CA80 MG PO; +COUMADIN PO; +GLUCOTROL PO; +IRON325 MG PO; +JANUVIA50 MG PO; +LANTUS100 UNITS/ SUBQ; +LOPRESSOR PO; +LORTAB 5-325 M1 EACH PO; +METFORMIN PO; +PROTONIX PO
--- NOTE | ~2016-12-08 | XA170 ---
[facility] A Service of [facility] & [facility] RADIOLOGY TEXT RESULTS PATIENT: ARLEEN GRANT LOCATION: [facility] : 35 UNIT #: [id number] AGE: [address]: Mickey Padilla MD SEX: F ORDER DR: [id number] [facility] [address] [place], [place] [address] [id number] O MR#: [id number] Acc #: [id number] NAME: ARLEEN GARNT. : 1935 SEX: F STUDY DATE/TIME: 12/08/2016 12:59 UNIT: [facility] ROOM: STUDY DESCRIPTION: XA Paracentesis W Image Attending Physician: Mickey Padilla M.D. Referring Physician: Mickey Padilla M.D. Ordering Physician: Mickey Padilla M.D. Primary Care Physician: Isa Moon A.P.R.N. MEDICAL IMAGING REPORT This report is preliminary unless electronic signature is present EXAM Ultrasound guided paracentesis HISTORY Ascites. Patient's last paracentesis was 11/30/2016. She has since had a repeat MRI which showed persistent large volume fluid. PROCEDURE The risks, benefits, and alternatives to the procedure were explained to the patient, and signed, informed consent was obtained. Patient was placed supine on the stretcher preliminary ultrasound of the abdomen was performed which demonstrated a large pocket of fluid within the right lower quadrant. This image is permanently saved. Overlying skin was marked. Patient was prepped and draped in usual sterile fashion. Time-out was performed as per protocol. Skin and subcutaneous tissues were anesthetized with buffered Lidocaine. Yueh catheter was advanced into the fluid with aspiration of serous material. Catheter was hooked to suction tubing. There was evacuation of a total of 3.6 liters of serous material. Catheter was then removed and manual pressure was applied until hemostasis was obtained. IMPRESSION Technically successful ultrasound guided paracentesis with evacuation of 3.6 liters of serous material. Ultrasound was used during the procedure and permanent images were saved. Dictated by... Aditi Mcgregor M.D. THIS IS AN ELECTRONICALLY VERIFIED REPORT [facility] A Service of [facility] & [facility] RADIOLOGY TEXT RESULTS PATIENT: ARLEEN GRANT LOCATION: [facility] : 35 UNIT #: [id number] AGE: [address]: Mickey Padilla MD SEX: F ORDER DR: Aditi Mcgregor M.D. at 12/09/2016 5:18 PM AFF/rnr TD: 12/09/2016 13:49 JOB #: [id number] MEDICAL IMAGING REPORT Page 1 of 1 COPY
[2016-12-08 12:50] LABS: HEMATOCRIT 35.9 % (35.0-45.0); HEMOGLOBIN 11.5 gm/dL (12.0-16.0); MEAN CORPUSCULAR HEMOGLOBIN 27.8 PG (28-34); MEAN PLATELET VOLUME 8.9 FL (6.5-11.5); RED BLOOD COUNT 4.13 X10e (3.90-5.30); RED CELL DISTRIBUTION WIDTH 14.3 % (11.0-15.5)
[2016-12-08 13:07] LABS: INR 1.6; PARTIAL THROMBOPLASTIN TIME 35.5 SECONDS (23.5-31.3)
== END | disposition home or self-care (01) ==
LOC: CIVR 12:04
PROVIDERS: Internal Medicine Medical Oncology
PROC: 0W9G3ZX Drainage of Peritoneal Cavity, Percutaneous Approach, Diagnostic (ICD-10-PCS; principal; 2016-12-08)
DX: C00.9 Malignant neoplasm of lip, unspecified (principal); R18.0 Malignant ascites
CPT/HCPCS: 36415; 85027; 85610; 85730; 88108; 88305; 88341; 88342

== ENCOUNTER → 2016-12-22 | Outpatient (CLI) | payer MEDICARE ==
--- NOTE | ~2016-12-22 | XA170 ---
[facility] A Service [facility] RADIOLOGY TEXT RESULTS PATIENT: ARLEEN GRANT LOCATION: [facility] : 35 UNIT #: [id number] AGE: [address]: Mickey Padilla MD SEX: F ORDER DR: [id number] [place] [id number] [facility] [place], [place] [address] [id number] O MR#: [id number] Acc #: [id number] NAME: ARLEEN GRANT. : 1935 SEX: F STUDY DATE/TIME: 12/22/2016 9:46 UNIT: [facility] ROOM: STUDY DESCRIPTION: XA Paracentesis W Image Attending Physician: Mickey Padilla M.D. Ordering Physician: Mickey Padilla M.D. Primary Care Physician: Isa Moon A.P.R.N. MEDICAL IMAGING REPORT This report is preliminary unless electronic signature is present EXAM Ultrasound-guided paracentesis INDICATION His recurrent ascites. Risks, benefits and alternatives of the procedure were discussed and informed consent was obtained. In the procedure room a time-out was performed confirming correct patient and procedure. All elements of maximum sterile-barrier technique utilized according to guidelines appropriate for the procedure. TECHNIQUE/FINDINGS Ultrasound of the right side of the abdomen was performed demonstrating a large amount of ascites. The overlying skin was prepped and draped in the usual sterile fashion. 1% lidocaine utilized to anesthetize the skin and underlying subcutaneous tissues. Next under ultrasound guidance a 5-Frenc Yueh catheter was inserted into the peritoneal space of the right lower quadrant and 5800 mL of fluid was removed. Needle was removed and a sterile dressing was applied. No immediate complications. IMPRESSION Technically successful ultrasound-guided paracentesis. Dictated by... Amauri Caceres M.D. THIS IS AN ELECTRONICALLY VERIFIED REPORT Amauri Caceres M.D. at 12/24/2016 7:59 AM GORGE/vero [facility] A Service [facility] RADIOLOGY TEXT RESULTS PATIENT: ARLEEN GRANT LOCATION: [facility] #: [id number] : 35 UNIT #: [id number] AGE: [address]: Mickey Padilla MD SEX: F ORDER DR: TD: 12/22/2016 21:52 JOB #: [id number] MEDICAL IMAGING REPORT Page 1 of 1 COPY
== END | disposition home or self-care (01) ==
LOC: CIVR 09:00
DX: R18.8 Other ascites (principal); C00.9 Malignant neoplasm of lip, unspecified; Z88.0 Allergy status to penicillin; Z88.5 Allergy status to narcotic agent

== ENCOUNTER → 2016-12-31 | Outpatient (CLI) | payer MEDICARE ==
--- NOTE | ~2016-12-31 | XA170 ---
[facility] A Service of [facility] & [facility] RADIOLOGY TEXT RESULTS PATIENT: ARLEEN GRANT LOCATION: [facility] : 35 UNIT #: [id number] AGE: [address]: Mickey Padilla MD SEX: F ORDER DR: [id number] [facility] [address] [place], [place] [address] [id number] O MR#: [id number] Acc #: [id number] NAME: ARLEEN GRANT. : 1935 SEX: F STUDY DATE/TIME: 12/31/2016 10:14 UNIT: [facility] ROOM: STUDY DESCRIPTION: XA Paracentesis W Image Attending Physician: Mickey Padilla M.D. Referring Physician: Mickey Padilla M.D. Ordering Physician: Mickey Padilla M.D. Primary Care Physician: Isa Moon A.P.R.N. MEDICAL IMAGING REPORT This report is preliminary unless electronic signature is present EXAM Ultrasound guided paracentesis, 12/31/2016 HISTORY Recurrent ascites PROCEDURE Informed site was obtained. Skin site was selected with ultrasound guidance and marked, sterilely prepped, draped and locally anesthetized. Paracentesis was performed with a Hobzyeh needle catheter and 5.8 L of fluid removed. There were no complications and the patient tolerated the procedure well. IMPRESSION Successful ultrasound-guided paracentesis with removal of 5.8 L of fluid without complication. Dictated by... Matt Munoz M.D. THIS IS AN ELECTRONICALLY VERIFIED REPORT Matt Munoz M.D. at 12/31/2016 4:05 PM TRAVIS/sabina TD: 12/31/2016 15:22 JOB #: [id number] MEDICAL IMAGING REPORT Page 1 of 1 COPY
== END | disposition home or self-care (01) ==
LOC: CIVR 09:40
PROC: 0W9G3ZX Drainage of Peritoneal Cavity, Percutaneous Approach, Diagnostic (ICD-10-PCS; principal; 2016-12-31)
DX: C00.9 Malignant neoplasm of lip, unspecified (principal); R18.8 Other ascites

== ENCOUNTER → 2017-01-07 | Outpatient (CLI) | payer MEDICARE ==
--- NOTE | ~2017-01-07 | XA170 ---
[facility] A Service of [facility] & [facility] RADIOLOGY TEXT RESULTS PATIENT: ARLEEN GRANT LOCATION: [facility] : 35 UNIT #: [id number] AGE: [address]: Mickey Padilla MD SEX: F ORDER DR: [id number] [facility]. [place], [place] [address] [id number] O MR#: [id number] Acc #: [id number] NAME: ARLEEN GRANT. : 1935 SEX: F STUDY DATE/TIME: 01/07/2017 8:34 UNIT: [facility] ROOM: STUDY DESCRIPTION: XA Paracentesis W Image Attending Physician: Mickey Padilla M.D. Referring Physician: Mickey Padilla M.D. Ordering Physician: Mickey Padilla M.D. Primary Care Physician: Isa Moon A.P.R.N. MEDICAL IMAGING REPORT This report is preliminary unless electronic signature is present EXAM Ultrasound-guided paracentesis INDICATIONS Recurrent ascites. PROCEDURE The risks, benefits, and alternatives of the procedure were discussed with the patient and informed consent was obtained. In the procedure room a time-out was performed confirming correct patient and procedure. All elements of maximum sterile-barrier technique utilized according to guidelines appropriate for the procedure. TECHNIQUE/FINDINGS Ultrasound of the right lower quadrant was performed demonstrating a large amount of ascites. The overlying skin was prepped and draped in the usual sterile fashion. 1% lidocaine was utilized to anesthetize the skin and underlying subcutaneous tissues. Next under ultrasound guidance 5-Citizen Of The [place] Yueh catheter was inserted into the peritoneal space in the right lower quadrant and 4600 mL of fluid was removed. Needle was removed and a sterile dressing was applied. No immediate complications. IMPRESSION Technically successful ultrasound-guided paracentesis Dictated by... Amauri Caceres M.D. THIS IS AN ELECTRONICALLY VERIFIED REPORT Amauri Caceres M.D. at 01/12/2017 11:21 AM GORGE/rosalino TD: 01/08/2017 05:53 [facility] A Service of [facility] & [facility] RADIOLOGY TEXT RESULTS PATIENT: ARLEEN GRANT LOCATION: [facility] #: [id number] : 35 UNIT #: [id number] AGE: [address]: Mickey Padilla MD SEX: F ORDER DR: ADRIANA #: [id number] MEDICAL IMAGING REPORT Page 1 of 1 COPY
== END | disposition home or self-care (01) ==
LOC: CIVR 08:13
DX: C00.9 Malignant neoplasm of lip, unspecified (principal); R18.8 Other ascites

== ENCOUNTER → 2017-01-14 | Outpatient (CLI) | payer MEDICARE ==
--- NOTE | ~2017-01-14 | XA170 ---
[facility] A Service of [facility] & [facility] RADIOLOGY TEXT RESULTS PATIENT: ARLEEN GRANT LOCATION: [facility] : 35 UNIT #: [id number] AGE: [address]: Mickey Padilla MD SEX: F ORDER DR: [id number] [facility]. [place], [place] [address] [id number] O MR#: [id number] Acc #: [id number] NAME: ARLEEN GRANT. : 1935 SEX: F STUDY DATE/TIME: 01/14/2017 14:58 UNIT: [facility] ROOM: STUDY DESCRIPTION: XA Paracentesis W Image Attending Physician: Mickey Padilla M.D. Ordering Physician: Mickey Padilla M.D. Primary Care Physician: Isa Moon A.P.R.N. MEDICAL IMAGING REPORT This report is preliminary unless electronic signature is present EXAM Ultrasound-guided paracentesis INDICATION Ascites PROCEDURE The risks, benefits, and alternatives to the procedure were explained to the patient, and signed, informed consent was obtained. Patient was placed supine on the stretcher. Preliminary ultrasound of the abdomen was performed, this demonstrated a large volume of ascites; this image was permanently saved. Overlying skin was marked, patient was prepped and draped in the usual sterile fashion, time-out was performed as per protocol, skin and subcutaneous tissues were anesthetized with buffered lidocaine, Yueh catheter was advanced into the fluid with aspiration of serous material. Catheter was hooked to suction tubing and there was evacuation of a total of 4.2 L of serous material. Catheter was then removed and manual pressure was applied until hemostasis was obtained. Patient tolerated the procedure well and there were no immediate complications. IMPRESSION Technically successful ultrasound guided paracentesis with evacuation of 4.2 L of serous material. Ultrasound was used during the procedure and permanent images were saved. Dictated by... Aditi Mcgregor M.D. THIS IS AN ELECTRONICALLY VERIFIED REPORT Aditi Mcgregor M.D. at 01/17/2017 4:54 PM AFF/psc STS. [facility] A Service of [facility] & [facility] RADIOLOGY TEXT RESULTS PATIENT: ARLEEN GRANT LOCATION: [facility] #: [id number] : 35 UNIT #: [id number] AGE: [address]: Mickey Padilla MD SEX: F ORDER DR: TD: 01/17/2017 15:51 JOB #: [id number] MEDICAL IMAGING REPORT Page 1 of 1 COPY
[2017-01-14 14:36] LABS: HEMATOCRIT 40.7 % (35.0-45.0); HEMOGLOBIN 13.3 gm/dL (12.0-16.0); MEAN CELL VOLUME 88.6 FL (83-96); MEAN CORPUSCULAR HGB CONC 32.7 g/dL (30-36); MEAN PLATELET VOLUME 9.7 FL (6.5-11.5); RED BLOOD COUNT 4.59 X10e (3.90-5.30); RED CELL DISTRIBUTION WIDTH 16.7 % (11.0-15.5); WHITE BLOOD COUNT 10.9 X10e3 (4.0-10.5)
[2017-01-14 14:57] LABS: PARTIAL THROMBOPLASTIN TIME 26.6 SECONDS (23.5-31.3)
== END | disposition home or self-care (01) ==
LOC: CIVR 13:55
PROVIDERS: Internal Medicine Medical Oncology
DX: C00.9 Malignant neoplasm of lip, unspecified (principal); R18.0 Malignant ascites
CPT/HCPCS: 36415; 85027; 85610; 85730